=== PATIENT | male | born 1990 | race Caucasian/White ===

== ENCOUNTER 2019-06-29 04:07 | Emergency (ER) | payer SELFPAY ==
[2019-06-29 04:09] VITALS: BP 149/72; PULSE 66; RESP 16; TEMP 36.6; O2SAT 98; BMI 29.6
--- NOTE | 2019-06-29 04:09 | ED_ITS ---
Entered by Madisyn Cantrell, acting as scribe for Vishal Hewitt DO HPI - Extremity Injury (Lower) General: Chief Complaint: Extremity Injury, Lower Stated Complaint: right ankle injury Time Seen by Provider: 06/29/19 04:08 Source: patient Mode of arrival: ambulatory History of Present Illness: HPI Narrative: 29 y/o male presents to the ED with complaint of right lower extremity pain. Pt states he twisted his ankle and fell while in [facility]. Pt reports being ambulatory, post fall, but has visible swelling. MD complaint: ankle injury (R) and fall Injury: Right: ankle Place: other ([facility]) Severity: mild Context: fall Associated symptoms: Reports swelling Review of Systems Const: Denies: fever or chills Eyes: Denies: change in vision or blurry vision ENMT: Denies: painful swallowing Card: Denies: chest pain, palpitations or irregular heart rhythm Resp: Denies: shortness of breath, productive cough, non-productive cough or wheezing GI: Reports: nausea; Denies: abdominal pain, vomiting or black tarry stool : Denies: painful urination or urinary urgency Musc: Denies: neck pain, back pain, redness or joint warmth Skin/Breast: Denies: rash, itching or redness Neuro: Denies: headache, dizziness, vertigo or confusion Psych: Denies: anxiety PFSH ED PFSH: Social History Smoking and tobacco status: former smoker Physical Exam Const: COMMON NORMALS: alert GENERAL APPEARANCE: well developed ORIENTATION/CONSCIOUSNESS: Yes awake, Yes oriented to person, Yes oriented to place and Yes oriented to time HENMT: COMMON NORMALS: normocephalic, external ears normal, external nose normal and moist oral mucous membranes HEAD & SCALP: normocephalic FACE & SINUS: normal facial exam NOSE: external nose normal and no nasal discharge EXTERNAL EAR: Yes external ears normal Eye: COMMON NORMALS: PERRL, EOMs intact bilaterally and conjunctivae normal EYELID: eyelids normal CONJUNCTIVA: Yes conjunctivae normal PUPIL: Yes PERRL Neck/C-Spine: COMMON NORMALS: full ROM Chest: COMMONS NORMALS: inspection of chest normal CHEST: Yes symmetrical chest wall rise and No tenderness Resp: COMMON NORMALS: clear to auscultation bilaterally EFFORT & INSPECTION: No tachypneic, No respiratory distress, No retractions, No uses accessory muscles and No tracheal deviation AUSCULTATION: clear to auscultation bilaterally, no rhonchi, no wheezes and lung sounds not diminished Cardio: COMMON NORMALS: regular rate and regular rhythm RATE: regular rate RHYTHM: regular rhythm HEART SOUNDS: no murmurs PERIPHERAL PULSES: radial pulses present GI: INSPECTION: No abdominal distension AUSCULTATION: No hyperactive bowel sounds and No hypoactive bowel sounds PALPATION: No tender, No guarding and No rigid PERCUSSION: no dullness to percussion and no tympanic to percussion Extremity: RIGHT LOWER EXTREMITY: Yes ankle joint (swelling) Right ankle: Yes palpation (painful) and No ROM Neuro: SENSORIUM/ORIENTATION: Yes alert, Yes oriented to person, Yes oriented to place and Yes oriented to time Psych: COMMON NORMALS: mental status grossly normal and speech normal SPEECH: Yes normal speech Skin: COMMON NORMALS: no rashes or lesions noted GENERAL SKIN EXAM: no rashes or lesions noted Course Vital Signs: Vital signs: Vital Signs Temperature 97.9 F 06/29/19 04:09 Pulse Rate 60 06/29/19 05:50 Respiratory Rate 16 06/29/19 05:50 Blood Pressure 136/59 06/29/19 05:50 Pulse Oximetry 97 06/29/19 05:50 MDM - Extremity Injury (Lower) MDM Narrative: Medical decision making narrative: Distal fibular fracture with lateral displacement and mortise disruption. Patient placed in a short leg posterior splint with stirrup augmentation. Crutches and nonweightbearing. He will follow-up with orthopedics. He will likely need internal fixation. Discharge Plan Discharge Patient Disposition: Home, Self-Care Clinical Impression: Ankle fracture Qualifiers: Encounter type: initial encounter Fracture type: closed Laterality: right Qualified Code(s): S82.891A - Other fracture of right lower leg, initial encounter for closed fracture Condition: Stable Prescriptions: [place] 7.5-325 mg tablet 1 tab PO Q6H PRN (Reason: pain) Qty: 20 RF: 0 No Action No Known Home Medications RF: 0 Discharge Orders: Discharge Order (Routine); Ordered 06/29/19 Ordered By: Vishal Hewitt Discharge Diet: Usual diet Discharge Activity: Limit activity as instructed Patient Instructions: Ankle Fracture (ED) Activity Restrictions/Additional Instructions: No weightbearing. Use crutches. Call the orthopedic clinic at [phone] to set up an appointment. Tell them you were seen here for an ankle fracture. We will put a note in case management's box and ask them to set you up one as well. Return for worsening pain despite treatment, with intense pain radiating to the toes, loss of feeling, other concerning symptoms. Discharge Date/Time: 06/29/19 05:51 Coding Level of Care Code ED Dog Or Horse Racing Official for g Fwd Exam Comprehensive The documentation recorded by the Óscar keen Ashley, accurately reflects the service I personally performed and the decisions made by , Vishal Hewitt DO Jun 29, 2019 04:07
--- NOTE | 2019-06-29 04:13 | XR_ITS ---
WS: [id number] XR ankle RT min 3V* [id number] REASON FOR EXAM: right ankle injury FINDINGS: A spiral displaced fracture of the distal fibula with marked instability the ankle mortise. The tibia appears to be intact. XR/XR ankle RT min 3V* [id number] IMPRESSION: Spiral fracture of the fibula with markedly widened ankle mortise.
[2019-06-29 04:43] VITALS: RESP 16
[2019-06-29] MEDS: oxyCODONE-APAP 5-325 mg Tablet 2 TAB PO (04:43)
[2019-06-29 05:50] VITALS: BP 136/59; PULSE 60; RESP 16; O2SAT 97
--- NOTE | 2019-07-01 15:31 | DCPLANNER ---
title manager had message to schedule a follow up appointment for patient with ortho. title manager called the ortho clinic, spoke with Pat, gave clinic patients information. title manager was told that patients information would be printed and reviewed. Clinic will call upper caser and patient with appointment information.
--- NOTE | 2019-07-04 13:45 | DCPLANNER ---
Patient had an appointment scheduled for 07.02.19 at ortho, patient did attend the appointment.
== END 2019-06-29 05:51 | disposition home or self-care (01) ==
PROVIDERS: Emergency Provider Emergency Medicine
DX: S82.831A Other fracture of upper and lower end of right fibula, initial encounter for closed fracture (principal); Z87.891 Personal history of nicotine dependence; W18.39XA Other fall on same level, initial encounter; Y92.512 Supermarket, store or market as the place of occurrence of the external cause
CPT/HCPCS: 29515; 73610; 99281; 99283; E0114

== ENCOUNTER → 2019-07-02 10:34 | Outpatient (BNVA) | payer SELFPAY | PROVIDERS: Referring Provider Emergency Medicine; Visit Provider Specialist | DX: S82.831A Other fracture of upper and lower end of right fibula, initial encounter for closed fracture (principal); X58.XXXA Exposure to other specified factors, initial encounter | CPT/HCPCS: 73610 ==

== ENCOUNTER 2019-07-02 14:18 | Outpatient (CLI) | payer SELFPAY | END 2019-07-02 14:19 | disposition home or self-care (01) | LOC: SPT 14:20 | PROVIDERS: Visit Provider Specialist | DX: Z46.89 Encounter for fitting and adjustment of other specified devices (principal); S82.899D Other fracture of unspecified lower leg, subsequent encounter for closed fracture with routine healing; X58.XXXD Exposure to other specified factors, subsequent encounter | CPT/HCPCS: L4361 ==

== ENCOUNTER 2019-07-04 07:32 | Day surgery (SDC) | payer SELFPAY ==
[2019-07-03 08:49] VITALS: BMI 29.6
[2019-07-03 15:30] VITALS: BMI 29.6
[2019-07-04] VITALS (12 sets, daily range): BP systolic 98–143; BP diastolic 67–91; PULSE 79–108; RESP 14–20; TEMP 36.6–37; O2SAT 94–100
--- NOTE | 2019-07-04 | SCC_ITS ---
Procedure Done: Open reduction internal fixation right bimalleolar ankle fracture with a 4-hole lateral fibular plate and a combination of locking and nonlocking screws 114.3 seconds of fluoroscopic guidance, for a cumulative dose of 5.74 mGy, was provided to Dr. Soliman by the radiology department. C-arm images of the RIGHT ankle were saved for the patient's permanent record. [facility]
--- NOTE | 2019-07-04 | XR_ITS ---
WS: [id number] Right ankle, AP and lateral C-arm fluoroscopy views, 07/04/2019 Clinical Data: ORIF RIGHT ANKLE Comparison: Right ankle, 07/02/2019. Findings: A lateral distal fibular plate is attached to the fibula with at least 7 orthopedic screws. This is r educing the oblique fracture of the distal right fibula. The ankle mortise is normal. XR/XR ankle RT 2V [id number] Impression: Internal fixation of distal right fibular fracture.
[2019-07-04] MEDS: CELEcoxib 200 mg Capsule 400 MG PO (07:57)
--- NOTE | 2019-07-04 08:16 | P.HPUD_ITS ---
Surgery/Procedure H&P Update DATE OF PROCEDURE: July 04, 2019 DATE H&P PERFORMED: 07/02/19 H&P UPDATE INFORMATION: I have reviewed H&P completed within last 30 days, I have examined patient prior to procedure and H&P is in [facility] EMR on date indicated PREOP DIAGNOSIS: Right bimalleolar ankle fracture PLANNED PROCEDURE: Operation Date: 07/04/19 09:00 Proposed Procedures p ORIF Lateral Mallelous Right 22145 S82.831A(Right) - Rosalee Soliman MD
--- NOTE | 2019-07-04 08:29 | ANES.PREANE2 ---
Pre-Anesthetic Assessment Pre-Anesthetic Assessment: Height/Weight: Height 1.96 m Weight 113.398 kg Temp Pulse Resp BP Pulse Ox 98.2 F 79 18 98/67 96 07/04/19 07:58 07/04/19 07:58 07/04/19 07:58 07/04/19 07:58 07/04/19 07:58 Preop Diagnosis: Right bimalleolar ankle fracture Proposed Procedure: Operation Date: 07/04/19 09:00 Proposed Procedures p ORIF Lateral Mallelous Right 40858 S82.831A(Right) - Rosalee Soliman MD Last intake: Intake Last Liquid Date 07/03/19 Last Solid Date 07/03/19 Social: Packs per day: 1/2 Pack years: 5 Comment: quit 1 month Exam: Pre-Anes Outpt Exam: alert, oriented x 3, clear to auscultation bilaterally and regular rate & rhythm Airway: Submandibular: WNL Cervical ROM: WNL MP: 1 Pulmonary: Pulmonary: Asthma Comments: breating feels good with out inhaler x 10y Anesthetic Plan: ASA status: 2 Anesthesia: General PFSH Anesthesia PFSH: Social History Smoking and tobacco status: former smoker Alcohol intake: current Alcohol intake frequency: holidays/special occasions only Desire information about substance/drug rehabilitation?: No Counseling given: No Data Anesthesia Cardiac Studies: No Data to Display
[2019-07-04] MEDS: sodium chloride 0.9% 1,000 ML 30 ML IV (08:30)
[2019-07-04] MEDS: fentaNYL 50 mcg/mL INJ 2mL IVP (09:27)
[2019-07-04] MEDS: ceFAZolin 1,000 mg SDV 1000 MG IRRIGATION (10:02)
--- NOTE | 2019-07-04 12:50 | P.OP_ITS ---
Operative Report Date of procedure: July 04, 2019 Pre-op Diagnosis: Right bimalleolar ankle fracture Post-op diagnosis: same Post-op Findings: No evidence of syndesmotic disruption Procedure Done: Open reduction internal fixation right bimalleolar ankle fracture with a 4-hole lateral fibular plate and a combination of locking and nonlocking screws Specimens removed/disposition: None Pathology: none sent Surgeon: Rosalee Soliman Director Of Provider Relations: [facility] OR technicians Anesthesia: General (Intubated) Estimated blood loss (mL): 5 Tourniquet time (min): 75 IV fluids (mL): 1,000 Urine output (mL): 0 Complications: None Condition: stable Disposition: same day Brief History: This 29-year-old gentleman was in his usual state of health when he fell while at [facility]. The patient suffered the above injury. He was seen in the emergency department and splinted. Subsequently, the patient was seen in my office, and discussion was undertaken of the need for surgical intervention. The patient understood and agreed to the plan of care. Questions were answered, and consents were signed. Plan was that we would evaluate the ankle at the time of the surgical intervention to determine whether or not there was also a syndesmotic disruption. Procedure: Patient was seen in the preoperative holding area and leg was marked. Patient was brought to the operating theater and placed on the operating room table. After undergoing adequate general anesthesia, the patient's right lower extremity was prepped and draped in usual fashion utilizing DuraPrep. The leg was draped free. Fluoroscopy was used throughout the surgical procedure. We did have a tourniquet high on the right lower extremity. This was elevated to 250 mmHg and total tourniquet time was 75 minutes. Tourniquet elevation followed exsanguination of the leg. A surgical pause was performed. At the time of the surgical pause we identified the site and side of surgery as well as the patient's identity and availability of equipment. We also confirmed appropriate administration of IV antibiotics, Ancef 2 g. Following the above, an incision was made centering over the patient's distal fibula fracture. The incision was continued proximally and distally as necessary to allow placement of the plate and reduction of the fracture. We were able to reduce the fracture anatomically. This was held with a clamp while we contoured a plate to appropriately fit the patient's lateral malleolar fracture. This did require a slightly more proximal position of the plate to allow the contoured to fit the bone. A Alexandra lateral fibular plate, 4-hole, plate was attached with standard technique. We used a combination of locking as well as nonlocking screws. Once the plate was appropriately attached, we irrigated the wound. We then closed the wound with 0 Vicryl in the fascial tissues, 2-0 Monocryl in the subcutaneous tissues, and the skin was closed with 3-0 Monocryl. This was followed by Dermabond, Steri-Strips, 4 x 4's, sterile soft roll, and an Alberto wrap.. Evaluation was accomplished under fluoroscopy to determine whether or not there was syndesmotic disruption. The ankle was noted to be quite stable. There was no need for the syndesmotic device. This was accomplished prior to closure of the lateral wound. The patient was placed in a Cam Walker boot and is to remain nonweightbearing. The procedure was well tolerated without complication. Tourniquet time was 75 minutes at 250 mmHg. The patient will be discharged home to follow-up in my office as scheduled.
[2019-07-04] MEDS: morphine 4 mg/mL SDV 1 mL IVP (13:09)
--- NOTE | 2019-07-04 13:16 | SUR.PHASEI ---
PT REQUESTED PO PAIN MED, FOR PAIN CONTROL
[2019-07-04] MEDS: oxyCODONE-APAP 5-325 mg Tablet 1 TAB PO (14:00)
== END 2019-07-04 14:33 | disposition home or self-care (01) ==
PROVIDERS: Visit Provider Specialist
PROC: (CPT 27814; principal; 2019-07-04 09:00)
DX: S82.841A Displaced bimalleolar fracture of right lower leg, initial encounter for closed fracture (principal); W01.0XXA Fall on same level from slipping, tripping and stumbling without subsequent striking against object, initial encounter; Y92.512 Supermarket, store or market as the place of occurrence of the external cause; Z87.891 Personal history of nicotine dependence
CPT/HCPCS: 27814; 12345; 73600; 76000; 96365; 96374; 96375; C1713; J0131; J0690; J1100; J1885; J2001; J2270; J2405; J2704; J3010; J3490; J7030

== ENCOUNTER → 2019-07-17 09:39 | Outpatient (BNVA) | payer SELFPAY | PROVIDERS: Visit Provider Specialist | DX: Z48.89 Encounter for other specified surgical aftercare (principal); S82.831A Other fracture of upper and lower end of right fibula, initial encounter for closed fracture; X58.XXXA Exposure to other specified factors, initial encounter | CPT/HCPCS: 73610 ==

== ENCOUNTER → 2019-08-05 08:30 | Outpatient (BNVA) | payer SELFPAY | PROVIDERS: Visit Provider Specialist | DX: Z48.89 Encounter for other specified surgical aftercare (principal); S82.841A Displaced bimalleolar fracture of right lower leg, initial encounter for closed fracture; X58.XXXA Exposure to other specified factors, initial encounter | CPT/HCPCS: 73610 ==

== ENCOUNTER 2019-08-05 10:06 | Outpatient (CLI) | payer SELFPAY | END 2019-08-05 10:07 | disposition home or self-care (01) | LOC: SPT 10:14 | PROVIDERS: Visit Provider Specialist | DX: Z46.89 Encounter for fitting and adjustment of other specified devices (principal); S82.841D Displaced bimalleolar fracture of right lower leg, subsequent encounter for closed fracture with routine healing; X58.XXXD Exposure to other specified factors, subsequent encounter | CPT/HCPCS: L1902 ==